=== PATIENT | female | born 1995 | race African-American/Black ===

== ENCOUNTER 2017-08-09 15:37 | Inpatient (IN) ==
[2017-08-09] MEDS ORDERED: ONDANSETRON 4 MG/2 ML VIAL IV PRN (16:29)
[2017-08-09] MEDS: LACTATED RINGERS 1,000 ML IV SCH ×2 (16:51→21:16)
[2017-08-09 16:55] LABS: Basophils % 0.1 % (0.0-0.8); Eosinophils % 0.1 % (0.00-10.9); Hematocrit 32.5 VOL% (35.7-47.0); Hemoglobin 10.9 GM/DL (12.0-16.0); Immature Granulocytes % 1.3 %; Immature Granulocytes Absolute 0.22 #; Mean Corpuscular HGB Conc 33.5 GM/DL (32-36); Mean Corpuscular Hemoglobin 31 PG (27-34); Mean Corpuscular Volume 91.8 FL (87-102); Mean Platelet Volume 9.3 FL (9.6-12.0); Monocytes # 1.6 10*3/uL (0.11-0.8); Monocytes % 9.6 % (1.7-12.7); Neutrophils # 13.1 10*3/uL (1.4-7.4); Neutrophils % 76.9 % (38.7-73.9); Platelet Count 298 T/CUMM (130-400); Red Blood Count 3.54 MC/CUMM (3.8-5.5); Red Cell Distribution Width 14.2 % (9.3-17.3)
[2017-08-09] MEDS ORDERED: BUTORPHANOL 1 MG/ML VIAL IV ONE (17:15)
[2017-08-09 17:25] LABS: Albumin 2.9 G/DL (3.4-5.0); Bilirubin,Total 0.4 MG/DL (0.2-1.0); Calcium 8.8 MG/DL (8.5-10.1); Osmolality,Calculated 270.7 MOS/KG (273-304); Potassium 3.8 MMOL/L (3.5-5.1); Total Protein 6.7 G/DL (6.4-8.3)
[2017-08-09] MEDS ORDERED: PROMETHAZINE 25 MG/1 ML VIAL IM ONE (20:17)
[2017-08-09] MEDS: BUTORPHANOL 1 MG/ML VIAL IV PRN (20:20)
[2017-08-10] MEDS: ACETAMINOPHEN 500 MG TABLET PO PRN ×3 (09:07→22:35)
[2017-08-10] MEDS: LACTATED RINGERS 1,000 ML IV SCH ×3 (10:00→20:15)
--- NOTE | 2017-08-10 10:05 | OB/GYN History & Physical ---
History of Present Illness Chief complaint: Left flank pain History of present illness: Ms. Garcia is a 21 year old female at 35 5/7 weeks who was admitted yesterday with left pyelonephritis. Pt is currently receiving antibiotics and fluids as well as pain management. Initial thought of kidney stone because her UA is not that impressive. However, in light of her WBC count, infection more likely. Reports that she feels better this morning. Still some flank pain. discussed with her that this will take days to resolve. culture still pending. 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: Vital Signs Temp Pulse Resp BP Pulse Ox 08/10/17 08:00 98.5 F 89 20 132/76 08/10/17 04:00 98.8 F 85 18 116/53 08/10/17 00:00 98.9 F 94 H 18 120/73 08/09/17 19:07 99.1 F 85 19 105/53 08/09/17 16:00 97.6 F 100 H 24 124/77 98 General appearance: no acute distress - Head Head exam: Present: normocephalic - Eye Eye exam: Present: EOMI Pupils: Present: ARTHUR - Respiratory Respiratory exam: Present: clear to auscultation bilaterally - Cardiovascular Cardiovascular exam: Present: regular rate and rhythm - GI/Abdominal GI/Abdominal exam: Present: other (FHTs reactive, occasional contraction) Assessment and Plan (1) 35 weeks gestation of Status: Acute Current Visit: Yes (2) Pyelonephritis affecting in third trimester Status: Acute Assessment and plan: Continue antibiotics, fluids and pain management Await culture Current Visit: Yes Results - Labs CBC & BMP: 08/09/17 16:44 08/09/17 16:44
[2017-08-10] MEDS ORDERED: CALCIUM CARBONATE CHEW 500 MG TABLET PO PRN (16:47)
[2017-08-10] MEDS: TERCONAZOLE 0.4% VAG CREAM 45 GM TUBE VAG SCH (21:42)
[2017-08-10] MEDS: BUTORPHANOL 1 MG/ML VIAL IV PRN (21:48)
--- NOTE | 2017-08-11 08:28 | OB/GYN Progress Note ---
Assessment and Plan (1) 35 weeks gestation of Status: Acute Current Visit: Yes (2) Pyelonephritis affecting in third trimester Status: Acute Assessment and plan: Continue antibiotics, fluids and pain management Culture negative?? 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 Having contractions and left flank pain. Additionally, when she just stood up, water was running down her leg. 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 Left flank pain) Results - Labs CBC & BMP: 08/09/17 16:44 08/09/17 16:44
[2017-08-11 09:33] LABS: Basophils % 0.2 % (0.0-0.8); Eosinophils # 0.1 10*3/uL (0.0-0.87); Eosinophils % 0.3 % (0.00-10.9); Hemoglobin 10.9 GM/DL (12.0-16.0); Immature Granulocytes Absolute 0.34 #; Lymphocytes # 2.3 10*3/uL (1.4-4.0); Lymphocytes % 13.3 % (21.3-54.2); Mean Corpuscular HGB Conc 35.2 GM/DL (32-36); Mean Corpuscular Hemoglobin 32 PG (27-34); Mean Corpuscular Volume 90.1 FL (87-102); Mean Platelet Volume 9.5 FL (9.6-12.0); Monocytes % 11.3 % (1.7-12.7); Neutrophils # 12.6 10*3/uL (1.4-7.4); Neutrophils % 72.9 % (38.7-73.9); Platelet Count 307 T/CUMM (130-400); Red Blood Count 3.44 MC/CUMM (3.8-5.5); Red Cell Distribution Width 14.6 % (9.3-17.3); White Blood Count 17.2 T/CUMM (4-12)
--- NOTE | 2017-08-11 09:33 | Ultrasound Report ---
Exam:US OB >= 14 weeks fetus Date:08/11/2017 8:26 AM Comparison: Early obstetric ultrasound January 14, 2017 Indication: Growth and MATILDE Findings: Real-time ultrasound images are captured and archived. There is a single intrauterine fetus in vertex presentation with a heart rate of 160 beats minute. The MATILDE measures a normal 12.9 cm. There is a three-vessel umbilical cord. Four-chamber heart view, stomach bubble, kidneys, spine, and bladder are identified and appear normal. The cord insertion site is not well seen. Intracranial measurements are not submitted, as there was limited visualization. Biometric parameters are detailed below. The fetus measures in the 83.3 percentile based on EFW. There are no masses of the maternal myometrium. The maternal ovaries are not seen because of gestation size and bowel gas. There is no gross adnexal mass in the maternal pelvis. Impression: Single intrauterine fetus in vertex presentation with an ultrasound gestational age of 36 weeks 6 days +/- 18 days, ERVIN September 02, 2017, and EFW 3159 +/- 73 g. There is cardiac activity. Biometry BPD:90.9 mm 36w 6d HC:328.1 mm 37w 2d AC:344 mm 38w 2d FL: 68.1 mm 35w 0d EFW:3159 grams +/- 473 grams Amniotic Fluid Index:12.9 cm MATILDE: Q1 =2.3 cm MATILDE: Q2 =3.4 cm MATILDE: Q3 =3.7 cm MATILDE: Q4 =3.5 cm The Ultrasound images were captured and stored. PROCEDURE INTERPRETED AT [facility] DEPARTMENT OF RADIOLOGY Final Report Signed by: Dr. Marisela Hou
[2017-08-11] MEDS: ACETAMINOPHEN 500 MG TABLET PO PRN (09:39)
--- NOTE | 2017-08-11 12:40 | Ultrasound Report ---
History: Left flank pain. Renal ultrasound Date: 08/11/2017 Study: Renal ultrasound bilateral, kidneys only Comparison exam: No similar Real-time ultrasound images are captured and archived. The right kidney measures 10.0 x 5.8 x 4.2 cm and appears normal without abnormal mass or hydronephrosis. The left kidney measures 11.6 x 5.2 x 4.7 cm and is without parenchymal mass. There is moderate left-sided hydronephrosis of uncertain etiology. No gross renal pelvic level stone is seen. There is gross color Doppler flow to either kidney. Impression: Moderate left-sided hydronephrosis of uncertain etiology PROCEDURE INTERPRETED AT [facility] DEPARTMENT OF RADIOLOGY Final Report Signed by: Dr. Marisela Hou
--- NOTE | 2017-08-11 13:11 | CT Report ---
History: Left flank pain Date: 08/11/2017 Study: CT abdomen and pelvis without contrast Comparison exam: No previous CT scan Technique: Spiral CT sections were obtained from the lung bases to the pubic symphysis without IV or oral contrast. Total DLP measures 236.5 mGy*cm. CT abdomen: The partially visualized lung bases are clear. There is no gross pleural or pericardial effusion. There is no evidence of pneumoperitoneum. The liver, spleen, pancreas, adrenal glands, bile ducts, and fluid-filled gallbladder are grossly unremarkable in noncontrast CT appearance. There is no gross renal parenchymal mass. There is moderate left-sided hydronephrosis and mild left hydroureter. No definite radiopaque renal or ureteral stone is seen. There is no hydronephrosis on the right. There is no aortic aneurysm. There is no bowel obstruction. There is no evidence of appendicitis. CT pelvis: There is a gravid uterus. There is a near term infant in vertex presentation with the spine to the maternal left. The placenta is anterior right lateral without previa. There is considerable extrinsic mass effect upon the urinary bladder by the vertex fetus. The CT exam was performed using one or more of the following dose reduction techniques: Automated exposure control, adjustment of the mA and/or kV according to patient size, or use of iterative reconstruction technique. Impression: Left-sided hydronephrosis and hydroureter which may be related to the patient's gravid state. No radiopaque renal or ureteral stone is seen. No definite acute process otherwise. Single intrauterine fetus in vertex presentation PROCEDURE INTERPRETED AT [facility] DEPARTMENT OF RADIOLOGY Final Report Signed by: Dr. Marisela Hou
[2017-08-11] MEDS: BUTORPHANOL 1 MG/ML VIAL IV PRN (14:06)
[2017-08-11] MEDS ORDERED: ACETAMINOPHEN/CODEINE 300-30 MG TABLET PO PRN (17:03)
[2017-08-11] MEDS: LACTATED RINGERS 1,000 ML IV SCH (17:09)
[2017-08-11] MEDS: ACETAMINOPHEN/CODEINE 300-30 MG TABLET PO PRN (20:24)
[2017-08-11] MEDS ORDERED: diphenhydrAMINE CAP 25 MG CAPSULE PO PRN (20:33)
[2017-08-11] MEDS ORDERED: POLYETHYLENE GLYCOL POWDER 17 GM PACK PO PRN (20:34)
[2017-08-11] MEDS ORDERED: ONDANSETRON 4 MG TABLET PO PRN (23:48)
[2017-08-12] MEDS: DOCUSATE SODIUM 100 MG CAPSULE PO SCH ×2 (01:00→08:50)
[2017-08-12] MEDS: ACETAMINOPHEN/CODEINE 300-30 MG TABLET PO PRN ×2 (02:15→08:50)
[2017-08-12] MEDS: TERCONAZOLE 0.4% VAG CREAM 45 GM TUBE VAG SCH (02:32)
[2017-08-12 07:20] VITALS: BP 104/60
--- NOTE | 2017-08-12 08:24 | Discharge Summary ---
Hospital Course - Hospital Course Hospital Course: Pt admitted with the thought that she had pyelonephritis on the left. The urine culture yesterday came back negative. renal u/s and low dose CT done to confirm that she does not have a stone. She does not. She has never had a true fever either. Explained to the patient that she has left hydro which is normal in . However, it is unfortunate now that she is likely having spasms as a result that are causing her waves of pain. Asked that she hydrate well, and use analgesia prn. Will work toward delivery when feasible. Diagnosis - Discharge Diagnosis (1) 35 weeks gestation of Status: Acute (2) Pyelonephritis affecting in third trimester Status: Acute Specialty Discharge - Follow Up or Referrals Discharge Plan - Discharge Data Disposition: Disch To Home/Self Care Condition at Discharge: Stable Discharge Diet: advance to your usual diet Activity: resume usual activities as tolerated Hygiene: no restrictions Weight Bearing at Discharge: full weight bearing Driving: no restrictions Contact your physician if you experience:: fever over 101, Difficulty voiding - Discharge Medications New Acetamin/Codeine 300-30 Tab [Tylenol/Codeine #3] 2 tablet PO Q6H PRN #25 tablet PRN Reason: Pain Mild (1-3) No Action Ferrous Sulfate [Iron] 1 tablet PO DAILY Nitrofurantoin Macro/[place] [Macrobid] 100 mg PO BID Vit 108/Iron/Folic AC [ One Tablet] 1 tablet PO DAILY - Follow Up or Referral - Forms/Instructions Instructions: Early Labor Signs (GEN), Movement (GEN), Lev Preparing for Delivery Exam - Constitutional Vitals: Period Temp Pulse Resp BP Sys/Richardson Pulse Ox Last 24 Hr 97.4 F-99.4 F 81-102 16-22 101-118/55-70 96-100 Discharge Results Procedures and tests throughout hospitalization: Pending Orders 08/09/17 17:20 Urine Culture Stat Labs on day of discharge: Labs from last 24 hours 08/11/17 09:16 WBC 17.2 H RBC 3.44 L Hgb 10.9 L Hct 31.0 L MCV 90.1 MCH 32 MCHC 35.2 RDW 14.6 Plt Count 307 MPV 9.5 L Neut % (Auto) 72.9 Lymph % (Auto) 13.3 L [place] % (Auto) 11.3 Eos % (Auto) 0.3 Baso % (Auto) 0.2 Neut # (Auto) 12.6 H Lymph # (Auto) 2.3 [place] # (Auto) 2.0 H Eos # (Auto) 0.1 Baso # (Auto) 0.0 Immature Gran % 2.0 Nucleated RBC % 0.0 Immature Gran # 0.34 Nucleated RBCs # 0.00 Immature Plt Fraction 0.0 Preliminary micro results at discharge 08/09/17 17:20 Urine Culture - Preliminary Urine,Catheterized No Growth at 24 hours. DS: Provider Date of admission: 08/10/17 10:19 Primary care physician: . No PCP Attending physician on admission: Jennifer Sharma MD Discharging clinician: Jennifer Sharma MD
== END 2017-08-12 10:30 | disposition home or self-care (01) | DRG 566 ==
LOC: N.LDOUT 15:37 → N.LD 15:38 → N.OB 08-11 20:16
PROVIDERS: ADMIT Obstetrics & Gynecology; ATTEND Obstetrics & Gynecology

== ENCOUNTER 2017-08-13 19:06 | Inpatient (IN) ==
[2017-08-13] MEDS: LACTATED RINGERS 1,000 ML IV SCH ×2 (19:50→21:10)
[2017-08-13] MEDS ORDERED: BUTORPHANOL 2 MG/ML VIAL IV PRN (20:03)
[2017-08-13 20:05] LABS: Basophils % 0.1 % (0.0-0.8); Eosinophils % 0.3 % (0.00-10.9); Hematocrit 35.7 VOL% (35.7-47.0); Hemoglobin 12.3 GM/DL (12.0-16.0); Immature Granulocytes % 1.3 %; Immature Granulocytes Absolute 0.19 #; Lymphocytes # 2.1 10*3/uL (1.4-4.0); Lymphocytes % 14.1 % (21.3-54.2); Mean Corpuscular HGB Conc 34.5 GM/DL (32-36); Mean Corpuscular Hemoglobin 31 PG (27-34); Mean Corpuscular Volume 89.5 FL (87-102); Mean Platelet Volume 9.1 FL (9.6-12.0); Monocytes # 1.6 10*3/uL (0.11-0.8); Neutrophils # 10.6 10*3/uL (1.4-7.4); Neutrophils % 73.2 % (38.7-73.9); Platelet Count 327 T/CUMM (130-400); Red Blood Count 3.99 MC/CUMM (3.8-5.5); Red Cell Distribution Width 14.4 % (9.3-17.3); White Blood Count 14.5 T/CUMM (4-12)
[2017-08-13 20:14] LABS: Apearance,Urine CLEAR (Clear); Bilirubin,Urine Negative (Negative); Blood, Urine Large mg/dL (Negative); Glucose,Urine (UA) Negative (Negative); Ketones,Urine 80 mg/dL (Negative); Mucus,Urine Occasional /LPF (Occasional); Nitrite,Urine Negative (Negative); Protein,Urine 30 MG/DL; RBC,Urine 179 /HPF (0-4); Squamous Epithelial Cell,Urine Occasional /HPF (0-10); Urine Color Yellow (Yellow); Urine Specific Gravity 1.008 (1.001-1.035); Urine Urobilinogen < 2.0 EU/DL (0.2-1.0)
[2017-08-13] MEDS: MEPERIDINE 50 MG/1 ML VIAL IV PRN (20:23)
[2017-08-13] MEDS: ONDANSETRON 4 MG/2 ML VIAL IV PRN (20:23)
[2017-08-13 20:30] LABS: Albumin 2.7 G/DL (3.4-5.0); Bilirubin,Total 0.4 MG/DL (0.2-1.0); Osmolality,Calculated 264.1 MOS/KG (273-304); Potassium 3.4 MMOL/L (3.5-5.1); Total Protein 7.5 G/DL (6.4-8.3)
[2017-08-13] MEDS: AMPICILLIN INJ 2,000 MG in SODIUM CHLORIDE 0.9% 100 ML IV SCH (21:10)
[2017-08-14] MEDS: MEPERIDINE 50 MG/1 ML VIAL IV PRN ×4 (01:05→11:37)
[2017-08-14] MEDS: LACTATED RINGERS 1,000 ML IV SCH (02:54)
[2017-08-14] MEDS: AMPICILLIN INJ 2,000 MG in SODIUM CHLORIDE 0.9% 100 ML IV SCH ×2 (03:15→09:30)
[2017-08-14] MEDS ORDERED: OXYTOCIN/LR 20 UNIT/1,000 ML BAG IV SCH (05:30)
[2017-08-14] MEDS: ONDANSETRON 4 MG/2 ML VIAL IV PRN (05:35)
--- NOTE | 2017-08-14 07:45 | OB/GYN History & Physical ---
History of Present Illness Chief complaint: labor History of present illness: Ms. Garcia is a 21 year old female at 37 weeks who presented this morning in labor. Pt noted to be 3-4 cm. Pt discharged yesterdy after admission with L flank pain. Negative urine culture, negative CT for stone. course otherwise uncomplicated. R/B/A to delivery reviewed. Pt verbalized understanding and is willing to proceed. Home Medications Medication Instructions Recorded Confirmed Type Ferrous Sulfate [Iron] 1 tablet PO DAILY 07/30/17 08/09/17 History Vit 108/Iron/Folic AC 1 tablet PO DAILY 07/30/17 08/09/17 History [ One Tablet] Nitrofurantoin Macro/[place] 100 mg PO BID 08/09/17 08/09/17 History [Macrobid] Acetamin/Codeine 300-30 Tab 2 tablet PO Q6H PRN #25 tablet 08/12/17 Rx [Tylenol/Codeine #3] Allergies Allergy/AdvReac Type Severity Reaction Status Date / Time No Known Allergies Allergy Verified 01/14/17 17:45 Medical,Surgical,& Family Hx - Medical History Hematology: No history of: Blood Transfusion Reaction Reproductive: No history of: Ectopic Other: No history of: Anesthesia Reactions, Anaphylaxis - Surgical History Thoracic Surgeries: Patient denies;: Lobectomy Neurologic Surgeries: Patient denies: Neurologic Surgery Abdominal Surgeries: Patient denies: Abdominal Surgery Reproductive Surgeries: Patient denies;: Genitourinary Surgery - Family History Family History: Reports;: Family Cancer (MGF), Family Diabetes (MGF), Family Hypertension (MGF) Denies;: Family Anesthesia Reaction, Family Heart Disease, Family Psychiatric Problems, Family Stroke - Social History 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 Status: 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: Vital Signs Temp Pulse Resp BP 08/14/17 04:00 98.1 F 114 H 19 116/62 08/14/17 00:00 97.9 F 91 H 18 114/71 General appearance: mild distress - Head Head exam: Present: normal inspection, normocephalic - Eye Eye exam: Present: EOMI Pupils: Present: ARTHUR - Respiratory Respiratory exam: Present: clear to auscultation bilaterally - Cardiovascular Cardiovascular exam: Present: regular rate and rhythm - GI/Abdominal GI/Abdominal exam: Present: soft, other (Regular contractions, FHTs reassuring) Assessment and Plan (1) 37 weeks gestation of Status: Acute Assessment and plan: Anticipate Current Visit: Yes Results - Labs CBC & BMP: 08/13/17 19:54 08/13/17 19:54
[2017-08-14] MEDS ORDERED: LACTATED RINGERS 1,000 ML IV ONE (09:23)
[2017-08-14] MEDS ORDERED: CITRIC ACID/SODIUM CITRATE 30 ML UDCUP PO ONE (09:23)
[2017-08-14] MEDS ORDERED: FAMOTIDINE 20 MG/2 ML VIAL IV ONE (09:23)
[2017-08-14] MEDS ORDERED: ePHEDrine 50 MG/ML AMP IV PRN (09:23)
[2017-08-14] MEDS ORDERED: fentaNYL 2 MCG/ROPIV 0.2% EPID 150 ML EPIDURAL SCH (09:23)
[2017-08-14] MEDS ORDERED: diphenhydrAMINE 50 MG/1 ML VIAL IV PRN (09:23)
--- NOTE | 2017-08-14 10:24 | OB/GYN Progress Note ---
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 AROM, clear, 90/0) Results - Labs CBC & BMP: 08/13/17 19:54 08/13/17 19:54
[2017-08-14 13:21] LABS: Cord Arterial Blood HCO3 13.9 MMOL/L
[2017-08-14 13:25] LABS: Cord Venous Blood HCO3 14.6 MMOL/L; Cord Venous Blood PCO2 46.9 MMHG; Cord Venous Blood PO2 18.1 MMHG
--- NOTE | 2017-08-14 14:23 | Event Note ---
DELIVERY NOTE of female in EMIR position after pushing for ~ 15 minutes. Pt presented last night in labor. Progression from 4-complete over ~ 4 hours. Weight,6 lbs 13 oz APGARS 3/7/8 Spontaneous delivery of intact placenta. Midline first degree hemostatic. team present for delivery. Baby taken with NICU to assist with breathing likely due to gestational age. Mom doing well.
[2017-08-14] MEDS ORDERED: WITCH HAZEL PADS 100/JAR TOP PRN (15:10)
[2017-08-14] MEDS ORDERED: HYDROCORTISONE 2.5% RECTAL CREAM 30 GM TUBE TOP PRN (15:10)
[2017-08-14] MEDS ORDERED: ONDANSETRON 4 MG/2 ML VIAL IV PRN (15:10)
[2017-08-14] MEDS ORDERED: DIPH/TET/ACEL PERT BOOSTER VACCINE 0.5 ML VIAL IM ONE (15:10)
[2017-08-14] MEDS ORDERED: RHO(D) IMMUNE GLOBULIN 300 MCG SYRINGE IM ONE (15:10)
[2017-08-14] MEDS ORDERED: BISACODYL 10 MG SUPP RECTAL PRN (15:10)
[2017-08-14] MEDS ORDERED: MEASLES/MUMPS/RUBELLA VACCINE 0.5 ML VIAL SUBCUT ONE (15:10)
[2017-08-14] MEDS ORDERED: OXYTOCIN/LR 20 UNIT/1,000 ML BAG IV ONE (15:10)
[2017-08-14] MEDS ORDERED: BENZOCAINE 20%/MENTHOL 0.5% SPRAY 56 GM CAN TOP PRN (15:10)
[2017-08-14] MEDS ORDERED: LANOLIN 50% CREAM 0.3 OZ TUBE TOP PRN (15:10)
[2017-08-14] MEDS ORDERED: ACETAMINOPHEN 325 MG TABLET PO PRN (15:10)
[2017-08-14] MEDS: DOCUSATE SODIUM 100 MG CAPSULE PO SCH (21:35)
[2017-08-14] MEDS: IBUPROFEN 800 MG TABLET PO PRN (21:59)
[2017-08-15] MEDS: IBUPROFEN 800 MG TABLET PO PRN ×2 (04:20→20:29)
[2017-08-15 06:16] LABS: Basophils % 0.1 % (0.0-0.8); Eosinophils # 0.1 10*3/uL (0.0-0.87); Eosinophils % 0.2 % (0.00-10.9); Hematocrit 31.9 VOL% (35.7-47.0); Hemoglobin 11.5 GM/DL (12.0-16.0); Immature Granulocytes Absolute 0.21 #; Lymphocytes # 1.2 10*3/uL (1.4-4.0); Lymphocytes % 5.6 % (21.3-54.2); Mean Corpuscular HGB Conc 36.1 GM/DL (32-36); Mean Corpuscular Hemoglobin 31 PG (27-34); Mean Corpuscular Volume 85.8 FL (87-102); Mean Platelet Volume 9.5 FL (9.6-12.0); Monocytes # 3.1 10*3/uL (0.11-0.8); Monocytes % 14.2 % (1.7-12.7); Neutrophils % 78.9 % (38.7-73.9); Platelet Count 291 T/CUMM (130-400); Red Blood Count 3.72 MC/CUMM (3.8-5.5); Red Cell Distribution Width 14.4 % (9.3-17.3); White Blood Count 21.5 T/CUMM (4-12)
[2017-08-15 07:50] LABS: Band Neutrophils 7 % (0-10); Hypochromasia 1+; Lymphocytes 7 % (20-55); Platelet Estimate Adequate; Segmented Neutrophils 82 % (50-85); Total Cells Counted 100
[2017-08-15] MEDS ORDERED: SIMETHICONE CHEW 80 MG TABLET PO PRN (08:27)
[2017-08-15] MEDS: DOCUSATE SODIUM 100 MG CAPSULE PO SCH ×2 (10:11→20:29)
--- NOTE | 2017-08-15 11:13 | OB/GYN Progress Note ---
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 - Constitutional Vitals: Vital Signs Temp Pulse Resp BP Pulse Ox 08/15/17 08:00 97.6 F 123 H 18 101/62 08/15/17 05:20 16 08/15/17 04:20 98.1 F 120 H 20 110/71 100 08/15/17 03:00 16 08/15/17 00:20 97.7 F 117 H 20 106/66 97 08/14/17 20:00 99.2 F 112 H 20 115/64 96 08/14/17 17:00 98.1 F 120 H 18 118/82 100 08/14/17 16:00 98.2 F 87 18 117/71 97 08/14/17 15:00 97.4 F L 107 H 18 117/74 98 08/14/17 14:30 99 H 18 122/80 98 08/14/17 14:00 98.0 F 110 H 18 121/78 97 General appearance: no acute distress - Head Head exam: Present: normocephalic - Eye Eye exam: Present: EOMI Pupils: Present: ARTHUR - GI/Abdominal GI/Abdominal exam: Present: soft. Absent: tenderness Results - Labs CBC & BMP: 08/15/17 05:44 08/13/17 19:54
--- NOTE | 2017-08-16 08:08 | Discharge Summary ---
Hospital Course - Hospital Course Hospital Course: Routine course. Some diarrhea today after stool softners bid. Ready to go home Diagnosis - Discharge Diagnosis (1) 37 weeks gestation of Status: Acute (2) Encounter for full-term uncomplicated delivery Status: Acute Discharge Plan - Discharge Data Disposition: Disch To Home/Self Care Condition at Discharge: Stable Discharge Diet: advance to your usual diet Activity: resume usual activities as tolerated Hygiene: may shower Weight Bearing at Discharge: full weight bearing Driving: no restrictions - Discharge Medications New Ibuprofen Tab [Motrin Tab] 800 mg PO Q6H PRN #20 tablet PRN Reason: Pain Moderate (4-7) No Action Ferrous Sulfate [Iron] 1 tablet PO DAILY Nitrofurantoin Macro/[place] [Macrobid] 100 mg PO BID Vit 108/Iron/Folic AC [ One Tablet] 1 tablet PO DAILY Acetamin/Codeine 300-30 Tab [Tylenol/Codeine #3] 2 tablet PO Q6H PRN #25 tablet PRN Reason: Pain Mild (1-3) - Follow Up or Referral - Forms/Instructions Exam - Constitutional Vitals: Period Temp Pulse Resp BP Sys/[place] Pulse Ox Last 24 Hr 97.6 F-100.3 F 105-128 18-20 91-112/55-66 96-98 General appearance: no acute distress - Head Head exam: Present: normal inspection - Eye Eye exam: Present: EOMI Pupils: Present: ARTHUR DS: Provider Date of admission: 08/13/17 19:35 Primary care physician: . No PCP Attending physician on admission: Jennifer Sharma MD Consults: 08/14/17 15:10 Consult to Stone Driller Helper [CONS] Routine Consult Stone Driller Helper: Breast Feeding Discharging clinician: Jennifer Sharma MD
[2017-08-16 09:20] VITALS: BP 91/66
--- NOTE | 2017-08-18 09:23 | Pathology Report from [facility] ---
[facility] [place] ACCESSION # : [id number] PATIENT NAME : Donovan Garcia ORDERING DR : Jennifer Sharma MD CLINICAL HX: IUP 36 wks gestation POST-OP DX: Same SPECIMEN INFO: Placenta GROSS DESCRIPTION: Received fresh labeled DONOVAN GARCIA & PLACENTA is a 644 gm placenta measuring 17.7 x 16.5 x 3.8 cm. The membranes are smith opaque and slightly thickened. The umbilical cord is centrally inserted, contains three vessels and is 15.9 cm with a clamp noted centrally. The surface is dark blue matthews. The maternal surface is hemorrhagic with mildly disrupted cotyledons with adherent clotted blood at the periphery and a few scattered calcifications. No gross abnormalities are noted upon sectioning. Sections submitted A- membranes and cord, B- and maternal surfaces. DIAGNOSIS FOR DONOVAN GARCIA: PLACENTA, 644 gms: Large for dates third trimester placenta with dystrophic calcification. Trivascular umbilical cord. Chorioamnionitis, acute. COLLECTED DATE: 08/16/2017 [facility] REPORT DATE: 08/17/2017 ELECTRONICALLY SIGNED BY: Anthony Garza III, M.D. 08/17/2017 - 11:01:54 [facility]
== END 2017-08-16 15:15 | disposition home or self-care (01) | DRG 560 ==
LOC: N.LDOUT 19:06 → N.LD 19:08 → N.OB 08-14 13:38
PROVIDERS: ADMIT Obstetrics & Gynecology; ATTEND Obstetrics & Gynecology

== ENCOUNTER 2020-07-19 21:36 | Inpatient (IN) ==
[2020-07-19 22:41] LABS: Apearance,Urine CLEAR (Clear); Bilirubin,Urine Negative (Negative); Blood, Urine Moderate mg/dL (Negative); Glucose,Urine (UA) Negative (Negative); Ketones,Urine Negative (Negative); Mucus,Urine Occasional /LPF (Occasional); Nitrite,Urine Negative (Negative); Protein,Urine Negative; RBC,Urine 3 /HPF (0-4); Squamous Epithelial Cell,Urine Occasional /HPF (0-10); Urine Color Yellow (Yellow); Urine Specific Gravity 1.009 (1.001-1.035); Urine Urobilinogen < 2.0 EU/DL (0.2-1.0); WBC,Urine 3 /HPF (0-6)
[2020-07-19] MEDS ORDERED: ONDANSETRON 4 MG/2 ML VIAL IV PRN (23:29)
[2020-07-19] MEDS ORDERED: ACETAMINOPHEN 325 MG TABLET PO PRN (23:29)
[2020-07-19] MEDS ORDERED: LACTATED RINGERS 1,000 ML IV SCH (23:30)
[2020-07-20] MEDS ORDERED: AMPICILLIN INJ 2,000 MG in SODIUM CHLORIDE 0.9% 100 ML IV ONE
[2020-07-20 00:03] LABS: Eosinophils % 0.2 % (0.00-10.9); Hematocrit 29.5 VOL% (35.7-47.0); Hemoglobin 9.1 GM/DL (12.0-16.0); Immature Granulocytes % 0.6 %; Immature Granulocytes Absolute 0.05 #; Lymphocytes # 1.5 10*3/uL (1.4-4.0); Mean Corpuscular HGB Conc 30.8 GM/DL (32-36); Mean Platelet Volume 9.5 FL (9.6-12.0); Monocytes % 9.6 % (1.7-12.7); Neutrophils % 71.6 % (38.7-73.9); Platelet Count 241 T/CUMM (130-400); Red Blood Count 3.51 MC/CUMM (3.8-5.5); Red Cell Distribution Width 14.6 % (9.3-17.3); White Blood Count 8.3 T/CUMM (4-12)
[2020-07-20] MEDS: BUTORPHANOL 2 MG/ML VIAL IV PRN ×3 (00:07→05:44)
[2020-07-20] MEDS ORDERED: miSOPROStoL 200 MCG TABLET ONE ×2 (02:46→07:12)
[2020-07-20] MEDS ORDERED: METHYLERGONOVINE 0.2 MG/1 ML AMP ONE ×2 (02:46→07:13)
[2020-07-20] MEDS ORDERED: OXYTOCIN/LR 20 UNIT/1,000 ML BAG IV ONE ×2 (02:46→07:13)
[2020-07-20] MEDS ORDERED: TRANEXAMIC ACID 1,000 MG/10 ML VIAL ONE ×2 (02:46→07:13)
[2020-07-20] MEDS ORDERED: CARBOPROST TROMETHAMINE 250 MCG/ML AMP IM ONE ×2 (02:47→07:13)
[2020-07-20] MEDS ORDERED: LIDOCAINE 1% 50 ML VIAL ONE ×2 (02:47→07:32)
[2020-07-20] MEDS: AMPICILLIN INJ 1,000 MG in SODIUM CHLORIDE 0.9% 100 ML IV SCH ×2 (04:44→09:28)
[2020-07-20] MEDS ORDERED: OXYTOCIN/LR 20 UNIT/1,000 ML BAG IV SCH (07:30)
[2020-07-20] MEDS ORDERED: CITRIC ACID/SODIUM CITRATE 30 ML UDCUP PO ONE (09:19)
[2020-07-20] MEDS ORDERED: LACTATED RINGERS 1,000 ML IV ONE (09:19)
[2020-07-20] MEDS ORDERED: ePHEDrine 50 MG/ML VIAL IV PRN (09:19)
[2020-07-20] MEDS ORDERED: FAMOTIDINE 20 MG/2 ML VIAL IV ONE (09:19)
[2020-07-20] MEDS ORDERED: hydrOXYzine HCL 25 MG/1 ML VIAL IM PRN (09:20)
[2020-07-20] MEDS ORDERED: PROMETHAZINE 25 MG/1 ML VIAL IM ONE (09:20)
[2020-07-20] MEDS ORDERED: diphenhydrAMINE 50 MG/1 ML VIAL IV PRN ×2 (09:20)
[2020-07-20] MEDS ORDERED: fentaNYL 2 MCG/ROPIV 0.2% EPID 100 ML EPIDURAL ONE (10:00)
[2020-07-20 11:42] LABS: Cord Arterial Blood HCO3 17.5 MMOL/L
[2020-07-20 11:45] LABS: Cord Venous Blood HCO3 18.1 MMOL/L; Cord Venous Blood PCO2 40.4 MMHG; Cord Venous Blood PO2 27.2
[2020-07-20] MEDS ORDERED: IBUPROFEN 800 MG TABLET PO PRN (11:53)
[2020-07-20] MEDS ORDERED: ACETAMINOPHEN 325 MG TABLET PO PRN (11:53)
[2020-07-20] MEDS ORDERED: BISACODYL 10 MG SUPP RECTAL PRN (11:53)
[2020-07-20] MEDS ORDERED: ONDANSETRON 4 MG/2 ML VIAL IV PRN (11:53)
[2020-07-20] MEDS ORDERED: MAGNESIUM HYDROXIDE SUSP 30 ML UDCUP PO PRN (11:53)
[2020-07-20] MEDS ORDERED: LACTATED RINGERS 1,000 ML IV SCH (12:00)
[2020-07-20] MEDS ORDERED: fentaNYL 2 MCG/ROPIV 0.2% EPID 100 ML EPIDURAL SCH (14:00)
[2020-07-20] MEDS: DOCUSATE SODIUM 100 MG CAPSULE PO SCH (21:51)
[2020-07-21 05:12] VITALS: BP 106/59
[2020-07-21 06:08] LABS: Basophils % 0.2 % (0.0-0.8); Eosinophils % 0.3 % (0.00-10.9); Hematocrit 22.8 VOL% (35.7-47.0); Immature Granulocytes % 0.6 %; Immature Granulocytes Absolute 0.08 #; Lymphocytes # 2.3 10*3/uL (1.4-4.0); Lymphocytes % 17.5 % (21.3-54.2); Mean Corpuscular HGB Conc 31.6 GM/DL (32-36); Mean Corpuscular Volume 83.8 FL (87-102); Mean Platelet Volume 9.6 FL (9.6-12.0); Monocytes % 8.6 % (1.7-12.7); Neutrophils % 72.8 % (38.7-73.9); Platelet Count 194 T/CUMM (130-400); Red Cell Distribution Width 14.6 % (9.3-17.3)
[2020-07-21 06:25] LABS: Hemoglobin 7.2 GM/DL (12.0-16.0); Red Blood Count 2.72 MC/CUMM (3.8-5.5)
[2020-07-21] MEDS: DOCUSATE SODIUM 100 MG CAPSULE PO SCH (09:44)
== END 2020-07-21 16:05 | disposition home or self-care (01) | DRG 807 ==
LOC: N.LDOUT 21:36 → N.LD 21:40 → N.OB 07-20 16:14
PROVIDERS: ADMIT Obstetrics & Gynecology; ATTEND Obstetrics & Gynecology